=== PATIENT | female | born 1975 | race Caucasian/White ===

== ENCOUNTER 2021-05-09 15:38 | Observation (INO) | payer OTHER ==
[~2021-05-09] VITALS: Ht 157.5 cm; Wt 93.0 kg
[2021-05-09] MEDS ORDERED: LISINOPRIL-HCT1 EACH PO (15:59)
--- NOTE | 2021-05-09 19:56 | NUR ---
TELEPHONE REPORT RECEIVED FROM ED RN LUCY. ROTHMAN ANSWERED, AWITING pt's ARRIVAL TO [facility] FLOOR.
--- NOTE | 2021-05-09 20:21 | NUR ---
pt ARRIVED TO [facility] FLOOR, PUNEET AUGUST IN ROOM AND COMPLETING pt's QUICK ADMIT.
--- NOTE | 2021-05-09 22:22 | NUR ---
ASSESSMENT COMPLETE, SCHEDULED PO MEDICATION GIVEN AND 1 OF 3 POTASSIUM RIDER GIVEN WITH LIDOCAINE PER POLICY. IV SITE WNL, K RIDER INFUSING DIRECTED. pt UP SBA TO VOID AND BACK IN BED. pt A/OX4, EQUAL STRENGTH BUE AND BLE. REPORTS MINIMAL LEFT CHEEK NUMBNESS, BUT REPORTS IMPROVED COMPARED TO START OF SHIFT. NO FURTHER NEEDS, CALL LIGHT IN REACH.
--- NOTE | 2021-05-09 22:30 | NUR ---
BEDSIDE SWALLOW EVAL COMPLETE, pt PASSED.
--- NOTE | 2021-05-09 23:50 | NUR ---
DISCUSSED ORDER FOR STAT MRI WITH DR SKELTON. PER DR SKELTON, pt WILL HAVE MRI IN THE MORNING WHEN THEY CAN "FIT HER IN".
--- NOTE | 2021-05-10 00:08 | NUR ---
2 OF 3 10MEQ POTASSIUM RIDER INFUSING, pt REPORTS SOME PAIN AT IV SITE. IV SITE WNL, BLOOD RETURN NOTED. RATE LOWERED TO 75MLS/HR AND RAN CONCURRENTLY WITH NS FOR COMFORT. LIDOCAINE ADDED PER OSITO, VERIFIED WITH SECOND RN LATHA.
--- NOTE | 2021-05-10 02:00 | NUR ---
pt RESTING IN BED, RR EVEN AND UNLABORED. NO NEEDS OR CONCERNS VERBALIZED. CALL LIGHT IN REACH.
--- NOTE | 2021-05-10 02:51 | NUR ---
Patient's BP was 146/86. MAP was 100. Patient is in bed and has no requests at this time. Call light is in reach.
--- NOTE | 2021-05-10 03:15 | NUR ---
pt AWAKE AND RESTING IN BED, SBA TO VOID AND BACK IN BED. IV SITE WNL, SALINE LOCKED. ASSESSMENT COMPLETE, pt A/OX4. DENIES PAIN AND NAUSEA. pt REPORTS NUMBNESS TO LEFT CHEEK RESOLVED. EQUAL STRENGTH IN BUE AND BLE, SPEECH CLEAR AND WNL. pt DENEIS BLURRY OR DOUBLE VISION. NO FURTHER NEEDS OR CONCERNS VERBALIZED. CALL LIGHT IN REACH.
--- NOTE | 2021-05-10 05:16 | NUR ---
Patient BP was 148/85 BP with 98 MAP. Call light is in reach. Patient is resting now.
--- NOTE | 2021-05-10 06:30 | NUR ---
MRI SCREENING FORM COMPLETED AND SENT TO IMAGING DEPARTMENT.
--- NOTE | 2021-05-10 07:00 | EKG ---
[facility] [address] [facility] [place], [place] [address] Signed Sinus tachycardia Otherwise normal ECG No previous ECGs available Confirmed by DANTE SKELTON MD ([id number]) on 05/10/2021 7:00:35 AM Electronically Signed By: DANTE SKELTON MD 05/10/21 0700 PATIENT NAME: YEFRI ROWELL Electrocardiogram DATE OF : 73 PHYSICIAN: DANTE SKELTON MD REPORT #: [id number] REPORT IS CONFIDENTIAL AND NOT TO BE RELEASED WITHOUT AUTHORIZATION
--- NOTE | 2021-05-10 07:58 | NUR ---
Patient in bed, alert and oriented x4. Patient has no distress at this time. Patient updated with plan of care. No current needs.
[2021-05-10] MEDS ORDERED: NYSTATIN15 GM TOP (11:22)
[2021-05-10] MEDS ORDERED: VITAMIN D325 MCG PO (11:37)
[2021-05-10] MEDS ORDERED: FISH OIL 1,0001 EAC2 PO (11:38)
[2021-05-10] MEDS ORDERED: VITAMIN C500 M1 PO (11:38)
--- NOTE | 2021-05-10 11:38 | NUR ---
MED REC COMPLETE
--- NOTE | 2021-05-10 13:47 | NUR ---
PATIENT SITTING UP IN BED. VITALS AND I&OS CHARTED. CALL LIGHT IN REACH
== END 2021-05-10 16:10 | disposition home or self-care (01) ==
LOC: ED 15:38 → MS 15:41
PROVIDERS: ADMIT Internal Medicine; ATTEND Internal Medicine
DX: R20.2 Paresthesia of skin (principal); I10 Essential (primary) hypertension; R00.0 Tachycardia, unspecified; E87.6 Hypokalemia; R07.89 Other chest pain; M54.2 Cervicalgia; Z88.0 Allergy status to penicillin; Z20.822 Contact with and (suspected) exposure to COVID-19
CPT/HCPCS: 36415; 70450; 70496; 70498; 70551; 71045; 71275; 74174; 80048; 80053; 83735; 84439; 84443; 84484; 84703; 85025; 85610; 85730; 93005; 93010; C9803; J3480; Q9967; U0003

== ENCOUNTER 2022-02-20 05:50 | Inpatient (IN) | payer OTHER ==
[~2022-02-20] VITALS: Ht 157.5 cm; Wt 93.2 kg
[~2022-02-20 05:50] MED LIST: FISH OIL 1,0001 EAC2 PO; LISINOPRIL-HCT1 EACH PO; NYSTATIN15 GM TOP; VITAMIN C500 M1 PO; VITAMIN D325 MCG PO
[2022-02-22] MEDS ORDERED: PERCOCET 5-3251 EACH PO (12:29)
[2022-02-22] MEDS ORDERED: MOTRIN IB200 MG PO (12:29)
--- NOTE | 2022-02-25 12:44 | PATH ---
[facility] [address] [place], [place] [address] Signed SPECIMEN(S): A UTERUS, CERVIX, BILAT TUBES, LEFT OVARY SPECIMEN SOURCE: A. UTERUS, CERVIX, BILAT TUBES, LEFT OVARY CLINICAL HISTORY: AUB FINAL PATHOLOGIC DIAGNOSIS: Uterus, cervix, bilateral tubes, and left ovary: - Benign weakly proliferative endometrium, negative for hyperplasia or atypia. - Endometrial adenomyosis. - Benign myometrial leiomyomas. - Benign endocervix and ectocervix. - Benign bilateral oviducts. - Benign left ovary with benign endometrioma (endometriosis). JVR:latonia:2NR MICROSCOPIC EXAMINATION: Histologic sections of all submitted blocks are examined by light microscopy. These findings, together with the gross examination, support the pathologic diagnosis. GROSS DESCRIPTION: The specimen, labeled and designated "Shaan, uterus, cervix, bilateral fallopian tubes, and left ovary," is received in formalin and consists of a uterus with attached intact cervix weighing 162 g and measuring 9.7 x 6.8 x 5.8 cm. The cervical os measures 1.5 cm in greatest dimension. The anterior portion of the lower uterine segment is inked blue. The cervix is polycystic. Opening the uterus reveals the usual triangular-shape. In the posterior portion of the uterus are two white whorled nodules measuring in the range of 0.5 to 1.2 cm in greatest dimension. On the anterior portion of the uterus there is a small white whorled nodule measuring 0.4 cm in greatest dimension. Also in the container is a detached right fallopian tube and detached left fallopian tube and ovary. The right fallopian tube segment measures 4.1 x up to 1.0 cm. One end is fimbriated and adjacent to the created end is a page cyst-like nodule measuring 0.6 x 0.4 x 0.4 cm. The segment is inked blue and serially sectioned. The left fallopian tube segment measures 3.5 x up to 1.5 PATIENT NAME: YEFRI ROWELL PATHOLOGY DATE OF : 73 REPORT #: [id number] PHYSICIAN: ENA MIRAMONTES PCP: GRETEL BELLO REPORT IS CONFIDENTIAL AND NOT TO BE RELEASED WITHOUT AUTHORIZATION [facility] [address] [place], [place] [address] Signed cm. One end is fimbriated. The segment is serially sectioned. The left ovary measures 3.2 x 2.7 x 2.5 cm. The ovary is serially sectioned and upon sectioning reveals a cyst-like nodule filled with dark brown gelatinous material is 3.0 x 2.5 x 1.8 cm. Customer Solutions Architect sections are submitted as follows: Cassette Summary: (A1) anterior cervix (A2) anterior endomyometrium (A3) posterior cervix (A4) posterior endomyometrium (A5) page-white whorled nodules (A6) right fallopian tube (A7) left fallopian tube (A8) left ovary HH (under the direct supervision of a pathologist) The Gross Description was prepared using a voice recognition system. The report was reviewed for accuracy; however, sound-alike word errors, addition and/or deletions may occur. If there is any question about this report, please contact Client Services. PERFORMING LABORATORY: The technical component was performed by [facility], [address] [place] [id number] (CLIA# [id number]). The professional interpretation was performed by [facility], [address] [place] [address] Ave[address] [place] [address] (CLIA#: [id number]). Diagnostician: Osbaldo Azar MD Pathologist Electronically Signed 02/25/2022 Copies: ~ PATIENT NAME: YEFRI ROWELL PATHOLOGY DATE OF : 73 REPORT #: [id number] PHYSICIAN: ENA MIRAMONTES PCP: GRETEL BELLO REPORT IS CONFIDENTIAL AND NOT TO BE RELEASED WITHOUT AUTHORIZATION
--- NOTE | 2022-04-11 12:39 | OR ---
[facility] [address] [place] [address] [place], [place] [address] Signed DATE OF OPERATION: 02/20/2022 SURGEON: Snow Hudson DO PREOPERATIVE DIAGNOSES: 1. Abnormal uterine bleeding. 2. Dysmenorrhea. 3. Obesity. POSTOPERATIVE DIAGNOSES: 1. Abnormal uterine bleeding. 2. Dysmenorrhea. 3. Severe pelvic adhesions. 4. Endometriosis. 5. Obesity. PROCEDURES PERFORMED: 1. Laparoscopic right salpingectomy. 2. Laparoscopic lysis of adhesions, extensive. 3. Total abdominal hysterectomy, left salpingo oophorectomy and cystoscopy. CONTROL ROOM TENDER: Myrtle Erickson DO. Olena García MD ANESTHESIA: General. COMPLICATIONS: None; converted to open due to severe adhesions. SPECIMENS: Right fallopian tube, left tube and ovary, uterus and cervix. ESTIMATED BLOOD LOSS: 400 mL. FINDINGS: Normal external genitalia with normal clitoris, urethral meatus, bilateral Rockfield's, and Bartholin glands. Normal vagina and cervix. On laparoscopy, severe adhesions of the Electronically Signed By: SNOW HUDSON DO (JD) 04/11/22 1239 PATIENT NAME: YEFRI GARDUNO OPERATIVE REPORT DATE OF : 73 REPORT #: [id number] PHYSICIAN: SNOW HUDSON DO (JD) PCP: GRETEL BELLO-Joe REPORT IS CONFIDENTIAL AND NOT TO BE RELEASED WITHOUT AUTHORIZATION [facility] [address] [place], [place] [address] Signed left tube and ovary to the pelvic sidewall. The patient was unable to tolerate steep Trendelenburg requiring conversion to open procedure. Hemostasis at the end of procedure. INDICATIONS: Ms. Garduno is a very pleasant 46-year-old, G3, P3, perimenopausal female, patient of Dr. Mariee with abnormal uterine bleeding. She has failed conservative therapy and decision was made to proceed with total laparoscopic hysterectomy, bilateral salpingectomy, and cystoscopy. Risks, benefits, and alternatives were discussed in detail with the patient. The patient understands, wished to proceed with the procedure. PROCEDURE IN DETAIL: The patient was taken to the operating room. A time-out was performed to confirm correct patient, correct procedure. General anesthesia was adequately established. The patient was prepped and draped in the dorsal lithotomy position with feet in Yellofin stirrups. ICPs were on and running and patient received Ancef 2 g preoperatively as well as heparin 5000 units preoperatively. 3 minutes prep dry was observed. A Meehan catheter was inserted. Weighted speculum was placed in the vagina. The anterior lip of the cervix was grasped with an Allis clamp and the cervix was gently dilated using Hegar dilators. VCare uterine manipulator was placed without difficulty. Attention was turned to the abdomen. A curvilinear incision was made 2 cm below the umbilicus after infiltration with 0.25% Marcaine with epinephrine. Fascia was grasped with hemostats, elevated, and the fascia was entered sharply with Metzenbaum scissors. Stay sutures of 0 Vicryl were placed in the inferior and superior edge of the fascial incision and the peritoneum was entered bluntly. S-retractor was placed and Schafer operative port was placed without difficulty and pneumoperitoneum was established with low opening pressures. Survey of the abdomen and pelvis was performed that demonstrated severe adhesions likely secondary to endometriosis. Particularly of the left adnexa and uterus being scarred into the pelvic sidewall. The patient was placed in steep Trendelenburg and a 5 mm assist port was placed in the left lower quadrant under direct visualization without complication. An 8 mm expanding port was placed in the right lower quadrant under direct visualization without complication. Attention was turned to the pelvis. The right fallopian tube was grasped at the fimbriated end, elevated and divided along the mesosalpinx using LigaSure device. The tube was delivered through the operative port and sent to pathology for further evaluation. The right utero-ovarian ligament was fulgurated and divided and the right round ligament was fulgurated and divided with excellent hemostasis. The leaves of the broad ligament were divided from the midportion of around to the edge of the vaginal cup and across the edge of the vaginal cup superiorly and posterior between the uterosacral ligaments. The uterine vessels were fulgurated but not divided at this point. Attention was then turned to the left adnexa. Dense scarring was noted in this area and decision was made to start retroperitoneal dissection. The retroperitoneum was nicked above the pelvic brim and the Electronically Signed By: SNOW BALBUENA) DO APPLE 04/11/22 1239 PATIENT NAME: YEFRI GARDUNO OPERATIVE REPORT DATE OF : 73 REPORT #: [id number] PHYSICIAN: SNOW HUDSON) PCP: GRETEL BELLO REPORT IS CONFIDENTIAL AND NOT TO BE RELEASED WITHOUT AUTHORIZATION [address] [address] Signed infundibulopelvic ligament was identified. Ureter was identified medial to this. At this point, the patient decompensated in steep Trendelenburg position. Multiple attempts were made to decrease Trendelenburg in order to continue laparoscopic case. However joint decision with anesthesia determined the patient would not be able to tolerate required Trendelenburg position in order to complete laparoscopic case. At this point, decision was made to convert to total abdominal hysterectomy. Pneumoperitoneum was reduced. Trocars were removed and infraumbilical fascia was repaired using 0 Vicryl in a running nonlocked manner. Assist ports were repaired using 4-0 Monocryl in a subcuticular stitch with excellent hemostasis. Surgery equipment was reconfigured and counts were completed. Dr García kindly presented to the OR to assist. Midline laparotomy was performed just superior to the pubic symphysis to the umbilicus. Bovie electrocautery was used to dissect subcutaneous tissue down to the fascia. The fascia was then grasped and entered sharply. Fascial incision was extended cephalad caudad using Bovie electrocautery. The rectus was divided and the peritoneum was entered bluntly. Peritoneal incision was extended cephalad caudad using sharp dissection. Attention was then turned to the left adnexa. Again, the left ureter and infundibulopelvic ligament were identified. The left ovary was densely adherent to the surrounding tissue and decision was made to proceed with a left salpingo-oophorectomy. The infundibulopelvic ligament was clamped and ligated with excellent hemostasis. The course of the ureter was continuously monitored and careful dissection of the adherent adnexa from the pelvic sidewall was performed. Division of the posterior leaf of the round ligament and posterior leaf of the broad ligament were performed with serial clamping and division of pedicles. The ureter again was noted to be well away from pedicles with each clamp and ligation. The uterine vessels were then identified and the anterior leaf of the broad ligament was completely dissected and the bladder was pushed well below the vaginal cup. The uterine vessels were clamped, divided, and suture ligated with excellent hemostasis. Colpotomy was then performed using Tim scissors and the uterus and cervix were sent to pathology for further evaluation. The colpotomy was then repaired using 0 Vicryl with multiple [id number] sutures with careful attention to incorporate the uterosacral ligaments bilaterally. Excellent hemostasis was appreciated. Tisseel was applied to the operative field with excellent hemostasis appreciated. Cystoscopy was then performed that demonstrated bilateral ureteral jets and normal bladder. Again with hemostasis assured. The peritoneum was closed using 2-0 Vicryl in a running nonlocked manner. Peritoneum was reapproximated using 2-0 Vicryl in a running nonlocked manner. The fascia was then reapproximated using #1 PDS in a running nonlocked manner with interrupted sutures of 0-Vicryl, reinforcing the fascia. Subcu was made hemostatic with Bovie electrocautery and then was reapproximated using 3-0 Vicryl in a running nonlocked manner. Skin was closed with surgical nickolas. The patient was then taken to the PACU in good and stable condition. Sponge, needle, and instrument count were correct x2 at the of the procedure. Electronically Signed By: SNOW HUDSON DO (JD) 04/11/22 1239 PATIENT NAME: YEFRI GARDUNO OPERATIVE REPORT DATE OF : [birth year] REPORT #: [id number] PHYSICIAN: SNOW HUDSON DO (JD) PCP: GRETEL BELLO REPORT IS CONFIDENTIAL AND NOT TO BE RELEASED WITHOUT AUTHORIZATION [address] [address] Signed Georgina was present for the entire procedure and Dr. García presented once decision was made to convert to total abdominal hysterectomy. DO CHANO Amaral/DAMIRL /[id number] Copies: ~ Electronically Signed By: SNOW HUDSON DO (JD) 04/11/22 1239 PATIENT NAME: YEFRI GARDUNO OPERATIVE REPORT DATE OF : [birth year] REPORT #: [id number] PHYSICIAN: SNOW HUDSON DO (JD) PCP: GRETEL BELLO REPORT IS CONFIDENTIAL AND NOT TO BE RELEASED WITHOUT AUTHORIZATION
== END 2022-02-22 13:18 | disposition home or self-care (01) | DRG 743 ==
LOC: DS 05:50 → OPS 05:50 → DS 09:30 → OPS 09:30 → MS 12:25 → OPS 12:26 → MS 12:26
PROVIDERS: ADMIT Obstetrics & Gynecology; ATTEND Obstetrics & Gynecology
PROC: 0UT10ZZ Resection of Left Ovary, Open Approach (ICD-10-PCS; 2022-02-20)
PROC: 0UT90ZZ Resection of Uterus, Open Approach (ICD-10-PCS; principal; 2022-02-20 07:00)
PROC: 0DNW4ZZ Release Peritoneum, Percutaneous Endoscopic Approach (ICD-10-PCS; 2022-02-20 07:00)
PROC: 0UT54ZZ Resection of Right Fallopian Tube, Percutaneous Endoscopic Approach (ICD-10-PCS; 2022-02-20 07:00)
PROC: 0UT60ZZ Resection of Left Fallopian Tube, Open Approach (ICD-10-PCS; 2022-02-20 07:00)
DX: N93.9 Abnormal uterine and vaginal bleeding, unspecified (principal); N94.6 Dysmenorrhea, unspecified; N80.9 Endometriosis, unspecified; N73.6 Female pelvic peritoneal adhesions (postinfective); I10 Essential (primary) hypertension; E66.9 Obesity, unspecified; Z20.822 Contact with and (suspected) exposure to COVID-19; Z68.37 Body mass index [BMI] 37.0-37.9, adult; Z79.899 Other long term (current) drug therapy; Z53.31 Laparoscopic surgical procedure converted to open procedure
CPT/HCPCS: 00840; 36415; 85027; A9270; J0131; J0330; J0690; J1100; J1160; J1644; J1650; J1885; J2250; J2370; J2405; J2704; J2765; J3010; J7121; U0003

== ENCOUNTER 2023-12-23 13:25 | Emergency (ER) | payer OTHER ==
[~2023-12-23] VITALS: Ht 157.5 cm; Wt 93.7 kg
[~2023-12-23 13:25] MED LIST changes: +MOTRIN IB200 MG PO; +PERCOCET 5-3251 EACH PO
[2023-12-23 14:11] LABS: BASOPHILS 0.8 % (0-2); HEMATOCRIT 42.8 % (35.0-50.0); HEMOGLOBIN 14.6 g/dL (12.0-18.0); LYMPHOCYTES 22.8 % (24-44); MCH 27.5 (27-36); MCV 80.9 fl (81-99); MONOCYTES 9.6 % (0-12); NEUTROPHILS 65.8 % (39-80); PLATELET COUNT 277 K/uL (140-440); RBC 5.29 M/ul (4.3-5.7); RDW 13.9 (10.5-15.0)
[2023-12-23 14:32] LABS: ALBUMIN 4.1 g/dL (3.4-5.0); ALBUMIN/GLOBULIN RATIO 0.91 (1.1-2.4); ANION GAP 14.6 (7-21); BILIRUBIN, TOTAL 0.3 ng/dL (0.2-1.0); BUN/CREATININE RATIO 26.25 (6.0-28.6); CREATININE, SERUM 0.8 mg/dL (0.55-1.02); POTASSIUM 3.6 mmol/L (3.5-5.1); PROTEIN, TOTAL 8.6 g/dL (6.4-8.2)
[2023-12-23 14:34] LABS: MAGNESIUM 1.9 mg/dL (1.8-2.4)
[2023-12-23 14:53] LABS: PARTIAL THROMBOPLASTIN TIME 26.9 Sec (22.9-41.3); PROTIME 12.8 Sec (11.2-14.2)
[2023-12-23 17:02] VITALS: BP 134/80
--- NOTE | 2023-12-24 21:41 | EKG ---
[facility] [address] [facility] [place], [place] [address] Signed Normal sinus rhythm Normal ECG When compared with ECG of 18-FEB-2022 11:44, No significant change was found Confirmed by Ethan Hess MD ([id number]) on 12/24/2023 9:41:05 PM Electronically Signed By: ETHAN HESS DO 12/24/232140 PATIENT NAME: IGNACIA ROWELLIA KELLE Electrocardiogram DATE OF : 73 PHYSICIAN: ETHAN HESS DO REPORT #: [id number] REPORT IS CONFIDENTIAL AND NOT TO BE RELEASED WITHOUT AUTHORIZATION
== END 2023-12-23 17:02 | disposition home or self-care (01) ==
LOC: ED 13:25
PROVIDERS: Emergency Medicine
DX: R79.1 Abnormal coagulation profile (principal); R07.9 Chest pain, unspecified; M54.2 Cervicalgia; I10 Essential (primary) hypertension; Z88.0 Allergy status to penicillin; Z79.899 Other long term (current) drug therapy
CPT/HCPCS: 36415; 70498; 71260; 80053; 83735; 83880; 84484; 85025; 85379; 85610; 85730; 93005; 93010; 99284-25; Q9967

== ENCOUNTER 2024-01-12 08:31 | Day surgery (SDC) | payer OTHER ==
[~2024-01-12] VITALS: Ht 157.5 cm; Wt 93.4 kg
[~2024-01-12 08:31] MED LIST changes: +IBLOOD GLUCOSE TEST STRIP 1 EA TEST VI PRN; +LACTATED RINGER'S 1,000 ML IV SCH; +LIDOCAINE HCL 1% 5 ML SDV INJ ONE; +METOPROLOL SUCC25 MG PO; +MIDAZOLAM HCL 5 MG/5 ML VIAL IV PRN; +fentaNYL citrate 100 MCG/2 ML VIAL IV PRN
[2024-01-12 08:48] VITALS: BP 146/75
[2024-01-12] MEDS ORDERED: MULTIVITAMIN1 EACH PO (08:52)
[2024-01-12] MEDS ORDERED: MIDAZOLAM HCL 5 MG/5 ML VIAL ONE (09:25)
[2024-01-12] MEDS ORDERED: fentaNYL citrate 100 MCG/2 ML VIAL ONE (09:25)
--- NOTE | 2024-01-12 10:18 | NUR ---
01/12/24 1018 Leonarda [place] 1006-PT ARRIVES TO PACU ON 3L O2, VSS, REU. PT AWAKE AND OREINTED, RESTING ON LT SIDE, PT DENIES ANY NEEDS AT THIS TIME, PT BACK ASLEEP.
[2024-01-12 11:05] VITALS: BP 106/66
--- NOTE | 2024-01-13 08:40 | OR ---
[facility] [address] [place], [place] [address] Signed DATE OF OPERATION: 01/12/2024 SURGEON: Veronika Hagan MD PREOPERATIVE DIAGNOSIS: Sister with multiple colonic polyps. POSTOPERATIVE DIAGNOSIS: Unremarkable colonoscopy. PROCEDURE: Colonoscopy without biopsy. ESTIMATED BLOOD LOSS: None. INDICATIONS: Yefri is a 48-year-old obese female, asked to see me for her initial screening colonoscopy. She told me her sister has to go every three years and have multiple colonic polyps removed. Yefri has no lower GI complaints. In the office, I had given her a pamphlet on colonoscopy. She understands the nature of the test. There is risk including, but not limited to gas bloating, crampy abdominal pain, bleeding, perforation requiring surgery, and missed diagnosis. We also reviewed the written instructions for bowel prep line by line. She understands the need for IV conscious sedation. She understands an adult person has to take her home afterwards. She said that would most likely be her . She had expressed understanding and wished to proceed. PROCEDURE IN DETAIL: Yefri was taken into our endoscopy suite and placed in the left lateral decubitus position. She was given a total of 8 mg of Versed and 100 mcg of fentanyl. A digital rectal exam was performed. This was unremarkable. Really no external hemorrhoids. She had good sphincter tone. There were no masses. The adult colonoscope was introduced and advanced under direct visualization of the camera without difficulty. We made it into the cecum. We had suctioned out some liquid stool. In that process, a little bit of the mucosa was caught. She had just a little bit of blood there at the base of the cecum. That will heal over quite nicely in the days ahead. The scope was then slowly withdrawn. We took several pictures for photodocumentation. She had no pathology entire colon or rectum. Upon retroflexion of the scope, there was no additional pathology above the anal canal. After this, the gas was suctioned out and the colonoscope removed. Yefri tolerated the procedure quite well. Electronically Signed By: VERONIKA HAGAN MD 01/13/24 0840 PATIENT NAME: YEFRI ROWELL OPERATIVE REPORT DATE OF : 73 REPORT #: [id number] PHYSICIAN: VERONIKA HAGAN MD PCP: LISET BELLO REPORT IS CONFIDENTIAL AND NOT TO BE RELEASED WITHOUT AUTHORIZATION [facility] [address] [place] [address] Signed RECOMMENDATIONS: Yefri will follow up in 5 years for repeat colonoscopy due to her sister's history of multiple colonic polyps. MD TAWANDA Bowie/MARTA /[id number] cc: MD Liset Bowie NP Copies: VERONIKA HAGAN MD ~ Electronically Signed By: VERONIKA HAGAN MD 01/13/24 0840 PATIENT NAME: YEFRI ROWELL OPERATIVE REPORT DATE OF : 73 REPORT #: [id number] PHYSICIAN: VERONIKA HAGAN MD PCP: LISET BELLO REPORT IS CONFIDENTIAL AND NOT TO BE RELEASED WITHOUT AUTHORIZATION
== END 2024-01-12 10:55 | disposition home or self-care (01) ==
LOC: OPS 08:31 → DS 09:45 → OPS 10:55
PROVIDERS: ATTEND Colon & Rectal Surgery
PROC: 0DJD8ZZ Inspection of Lower Intestinal Tract, Via Natural or Artificial Opening Endoscopic (ICD-10-PCS; principal; 2024-01-12 09:45)
DX: Z12.11 Encounter for screening for malignant neoplasm of colon (principal); I10 Essential (primary) hypertension; E66.9 Obesity, unspecified; Z68.37 Body mass index [BMI] 37.0-37.9, adult; Z79.899 Other long term (current) drug therapy; Z88.0 Allergy status to penicillin; Z83.719 Family history of colon polyps, unspecified
CPT/HCPCS: 99153; G0500; J2250; J3010; J7121